=== PATIENT | male | born 1980 | race Caucasian/White ===

== ENCOUNTER 2020-10-01 03:47 | Inpatient (IN) | payer OTHER ==
[~2020-10-01] VITALS: Ht 170.2 cm; Wt 138.3 kg
[2020-10-01 03:56] VITALS: BP 141/83
[2020-10-01] MEDS ORDERED: NORCO 10-325 T1 EACH PO (04:02)
[2020-10-01 04:37] LABS: ABSOLUTE BASOPHILS 0.1 thou/uL (0.0-0.2); ABSOLUTE EOSINOPHILS 0.1 thou/uL (0.0-0.7); ABSOLUTE LYMPHOCYTES 1.3 thou/uL (0.8-5.3); ABSOLUTE MONOCYTES 0.7 thou/uL (0.0-1.2); BASOPHILS 0.8 %; EOSINOPHILS 0.6 %; HEMOGLOBIN 14.7 gm/dL (14.0-18.0); LYMPHOCYTES 11.7 %; MCHC 34.2 g/dL (28.0-37.0); MCV 87.6 fL (80.0-100.0); MONOCYTES 6.3 %; MPV 7.9 fl. (7.2-11.1); NUCLEATED RBCS 0 /100WBC; PLATELET COUNT* 265 thou/uL (150-400); POLYS 80.6 %; RBC 4.91 mil/uL (4.50-6.00); WBC 11.1 thou/uL (4.0-11.0)
[2020-10-01 04:52] LABS: CREATININE 1.1 mg/dL (0.6-1.3); POTASSIUM 3.9 mmol/L (3.5-5.1)
[2020-10-01 04:54] LABS: PROTIME 10.4 Seconds (9.20-11.50)
[2020-10-01 04:57] LABS: ALBUMIN 3.6 g/dL (3.4-5.0); TOTAL PROTEIN 7.4 g/dL (6.4-8.2)
[2020-10-01 06:10] LABS: URINE BILIRUBIN NEGATIVE (Negative); URINE BLOOD NEGATIVE (Negative); URINE CLARITY CLEAR; URINE COLOR YELLOW; URINE GLUCOSE-RANDOM 2+ (Negative); URINE KETONES TRACE (Negative); URINE LEUKOCYTES-REFLEX NEGATIVE (Negative); URINE NITRITE-REFLEX NEGATIVE (Negative); URINE PROTEIN NEGATIVE (Negative); URINE UROBILINOGEN 0.2 E.U./dl (0.2-1.0)
[2020-10-01 12:17] VITALS: BP 135/76
[2020-10-01 12:45] VITALS: BP 130/90
--- NOTE | 2020-10-01 13:18 | EKG ---
[place] [address] ELECTROCARDIOGRAM REPORT Name: LINDAPURNIMA Kebede Room: [address] ADM IN M.R.#: [id number] Admission: 10/01/20 Attend Phys: Molly Dwyer, Discharge: Date of : 80 Date of Service: 10/01/20 0403 Report #: [id number] THIS REPORT FOR: //name// [facility] ED Test Date: 2020-10-01 Test Time: 04:03:04 Pat Name: PURNIMA MCKEON Department: Room: [facility] Gender: M Central Lab Technician: [facility] : 1980 Requested By: Keyanna Marin Order Number: [id number] MD: Robson Maria Measurements Intervals [place] Rate: 105 P: 48 SD: 119 QRS: 70 QRSD: 98 T: 41 QT: 320 QTc: 423 Interpretive Statements Sinus tachycardia Minor IVCD No previous ECG available for comparison Electronically Signed On 10-01-2020 13:18:41 [employer] by Robson Maria [email or web address] <ELECTRONICALLY SIGNED> By: Robson Maria MD, [facility] 10/01/20 1318 0403 0403 Robson Maria MD, [facility] /EPI
[2020-10-01 16:08] VITALS: BP 138/92
[2020-10-01 20:00] VITALS: BP 151/93
[2020-10-02 04:00] VITALS: BP 144/89
[2020-10-02 05:09] LABS: MCH 30.2 pg (26.0-34.0); MCHC 33.5 g/dL (28.0-37.0); RBC 4.22 mil/uL (4.50-6.00); RDW-CV 14.2 % (10.5-14.5); WBC 9.1 thou/uL (4.0-11.0)
[2020-10-02 05:10] LABS: HEMOGLOBIN 12.7 gm/dL (14.0-18.0)
[2020-10-02 05:48] LABS: CALCIUM 9.1 mg/dL (8.5-10.1); MAGNESIUM 2.2 mg/dL (1.8-2.4); POTASSIUM 3.8 mmol/L (3.5-5.1); TOTAL BILIRUBIN 0.9 mg/dL (<0.1-1.0); TOTAL PROTEIN 6.6 g/dL (6.4-8.2)
[2020-10-02 07:30] VITALS: BP 146/95
[2020-10-02 16:00] VITALS: BP 129/83
[2020-10-02 20:30] VITALS: BP 138/84
[2020-10-03 10:00] VITALS: BP 148/98
[2020-10-03 18:55] VITALS: BP 137/70
[2020-10-03 19:35] VITALS: BP 133/92
[2020-10-04 08:20] VITALS: BP 153/91
[2020-10-04 16:14] VITALS: BP 148/90
[2020-10-04 20:00] VITALS: BP 126/71
[2020-10-05 04:58] LABS: HEMATOCRIT 38.1 % (42.0-52.0); HEMOGLOBIN 12.9 gm/dL (14.0-18.0); MCH 29.8 pg (26.0-34.0); MCHC 33.9 g/dL (28.0-37.0); MCV 87.9 fL (80.0-100.0); MPV 7.5 fl. (7.2-11.1); RBC 4.34 mil/uL (4.50-6.00); WBC 6.6 thou/uL (4.0-11.0)
[2020-10-05 05:16] LABS: CALCIUM 8.6 mg/dL (8.5-10.1); CREATININE 0.9 mg/dL (0.6-1.3); POTASSIUM 3.3 mmol/L (3.5-5.1); TOTAL BILIRUBIN 0.6 mg/dL (<0.1-1.0); TOTAL PROTEIN 7.1 g/dL (6.4-8.2)
[2020-10-05 09:30] VITALS: BP 149/102
[2020-10-05 16:50] VITALS: BP 146/90
[2020-10-05 20:30] VITALS: BP 131/80
[2020-10-06 02:05] LABS: GLYCOHEMOGLOBIN (HGB A1C) 9.1 % (4.8-5.6)
[2020-10-06 05:14] LABS: HEMATOCRIT 38.4 % (42.0-52.0); MCH 29.7 pg (26.0-34.0); MCHC 33.8 g/dL (28.0-37.0); MPV 7.4 fl. (7.2-11.1); RBC 4.36 mil/uL (4.50-6.00); RDW-CV 14.1 % (10.5-14.5)
[2020-10-06 05:21] LABS: ALBUMIN 2.8 g/dL (3.4-5.0); POTASSIUM 3.4 mmol/L (3.5-5.1); TOTAL BILIRUBIN 0.7 mg/dL (<0.1-1.0); TOTAL PROTEIN 6.5 g/dL (6.4-8.2)
[2020-10-06 08:15] VITALS: BP 147/92
[2020-10-06 15:50] VITALS: BP 159/85
[2020-10-06 20:45] VITALS: BP 145/88
[2020-10-07 07:45] VITALS: BP 153/99
[2020-10-07] MEDS ORDERED: NORCO 10-325 T1 EACH PO (08:25)
[2020-10-07] MEDS ORDERED: AUGMENTIN 875-1 EACH PO (08:25)
[2020-10-07] MEDS ORDERED: GLUCOTROL XL2.5 MG PO (08:25)
[2020-10-07] MEDS ORDERED: GLUCOPHAGE500 MG PO (08:25)
[2020-10-07] MEDS ORDERED: TEST STRIPS1 EACH TOP (08:33)
[2020-10-07] MEDS ORDERED: OTHER MISCELL (08:33)
[2020-10-07 11:31] VITALS: BP 153/99
[2020-10-07 12:18] VITALS: BP 153/99
== END 2020-10-07 12:18 | disposition home or self-care (01) | DRG 872 ==
LOC: M.ERS 03:47 → M.3W 08:30 → M.TBA-ER 08:30 → M.3W 12:28
PROVIDERS: Personal Emergency Response Attendant; ADMIT Internal Medicine; ATTEND Internal Medicine
DX: A41.9 Sepsis, unspecified organism (principal); K57.20 Diverticulitis of large intestine with perforation and abscess without bleeding; I10 Essential (primary) hypertension; E66.01 Morbid (severe) obesity due to excess calories; Z20.828 Contact with and (suspected) exposure to other viral communicable diseases; Z79.899 Other long term (current) drug therapy; Z28.21 Immunization not carried out because of patient refusal; Z68.42 Body mass index [BMI] 45.0-49.9, adult; Z88.8 Allergy status to other drugs, medicaments and biological substances